=== PATIENT | female | born 1980 | race Caucasian/White ===

== ENCOUNTER 2017-07-06 13:01 | Observation (INO) ==
[2017-07-06] MEDS ORDERED: HYDROmorphone 2 MG/1 ML VIAL IV STA (13:13)
[2017-07-06] MEDS ORDERED: ONDANSETRON 4 MG/2 ML VIAL IV STA (13:13)
[2017-07-06 13:25] LABS: Basophils # 0.1 10*3/uL (0.0-0.2); Basophils % 0.8 % (0.0-0.8); Eosinophils # 0.3 10*3/uL (0.0-0.87); Eosinophils % 3.5 % (0.00-10.9); Hematocrit 33.4 VOL% (35.7-47.0); Hemoglobin 10.4 GM/DL (12.0-16.0); Immature Granulocytes % 0.6 %; Immature Granulocytes Absolute 0.05 #; Lymphocytes # 2.6 10*3/uL (1.4-4.0); Lymphocytes % 28.2 % (21.3-54.2); Mean Corpuscular HGB Conc 31.1 GM/DL (32-36); Mean Corpuscular Hemoglobin 23 PG (27-34); Mean Corpuscular Volume 73.2 FL (87-102); Monocytes # 0.5 10*3/uL (0.11-0.8); Monocytes % 5.8 % (1.7-12.7); Neutrophils # 5.6 10*3/uL (1.4-7.4); Neutrophils % 61.1 % (38.7-73.9); Platelet Count 384 T/CUMM (130-400); Red Blood Count 4.56 MC/CUMM (3.8-5.5); Red Cell Distribution Width 17.5 % (9.3-17.3); White Blood Count 9.1 T/CUMM (4-12)
[2017-07-06] MEDS ORDERED: ONDANSETRON 4 MG/2 ML VIAL ONE (13:26)
[2017-07-06] MEDS ORDERED: HYDROmorphone 2 MG/1 ML VIAL ONE (13:26)
[2017-07-06 13:47] LABS: Alanine Aminotransferase 27 U/L (13-56); Albumin 3.8 G/DL (3.4-5.0); Alkaline Phosphatase 101 U/L (45-117); Aspartate Amino Transferase 14 U/L (0-37); Bilirubin,Total < 0.39 MG/DL (0.2-1.0); Blood Urea Nitrogen 17 MG/DL (7-18); Calcium 9.2 MG/DL (8.5-10.1); Glucose 120 MG/DL (74-106); Osmolality,Calculated 279.5 MOS/KG (273-304); Sodium 139 MMOL/L (136-145); Total Protein 8.2 G/DL (6.4-8.3)
[2017-07-06 13:49] LABS: Lactic Acid 1.5 MMOL/L (0.4-2.0)
--- NOTE | 2017-07-06 14:55 | Ultrasound Report ---
Right upper quadrant ultrasound Indication: Abdominal Pain Findings: The liver is normal in size and echogenicity. The gallbladder is fluid-filled without evidence of stones or sludge. The gallbladder wall thickness is 3.2 mm . The common bile duct measures 3.7 mm. The visualized portion of the pancreas appear within normal limits The right kidney is normal in size and echogenicity and measures 10.7 cm . No free fluid or free air seen. Impression: No evidence of abnormality demonstrated. Ultrasound images stored and captured. PROCEDURE INTERPRETED AT [facility] DEPARTMENT OF RADIOLOGY Final Report Signed by: Dr. Tr Ferreira
[2017-07-06 15:20] LABS: Apearance,Urine Slightly Hazy (Clear); Bilirubin,Urine Negative (Negative); Blood, Urine Moderate mg/dL (Negative); Glucose,Urine (UA) Negative (Negative); Ketones,Urine 20 mg/dL (Negative); Mucus,Urine Occasional /LPF (Occasional); Nitrite,Urine Negative (Negative); Protein,Urine Negative; RBC,Urine 8 /HPF (0-4); Squamous Epithelial Cell,Urine Occasional /HPF (0-10); Urine Color Yellow (Yellow); Urine Specific Gravity 1.031 (1.001-1.035); Urine Urobilinogen < 2.0 EU/DL (0.2-1.0); WBC,Urine 1 /HPF (0-6)
--- NOTE | 2017-07-06 16:08 | CT Report ---
Exam: CT abdomen and pelvis without intravenous contrast Exam date: 07/06/2017 3:51 PM Clinical History: 36 years,Female, worsening right flank and abdominal pain, generalized Technique: Axial computed tomography images of the abdomen and pelvis without intravenous contrast. All CT scans at this facility use one or more dose reduction techniques. Automated exposure control, MA/KV adjustment per patient size (including targeted exam Square dose is matched to indication) or iterative reconstruction technique Comparison: August 11, 2014 Findings: Lower thorax: No acute pathology within the lung bases. Abdomen: Liver: Enlarged Gallbladder and bile ducts: Slightly distended with large stone at the gallbladder neck. Pancreas: Pancreas is normal. Spleen: Spleen is normal. Adrenals: No adrenal mass. Kidneys and ureters: Normal in size, echotexture and morphology. No hydronephrosis. No ureteral calculus. Stomach and bowel: No evidence of acute gastritis, colitis or enteritis. No bowel obstruction. Appendix: No primary or secondary signs to suggest appendicitis. Pelvis: Bladder: Unremarkable Reproductive: 7.0 cm mixed density mass abutting the posterior right uterus. Abdomen and pelvis: Intraperitoneal space: No pneumoperitoneum. No free intraperitoneal fluid Bones/joints: No acute osseous abnormality. Soft tissues: No mass Vasculature: No aortic aneurysm. Atheromatous calcifications noted along the aorta and branch vessels. Lymph nodes: No adenopathy Impression: 1. 1. Cholelithiasis with gallbladder distention. Correlate with dedicated ultrasound for possibility of underlying cholecystitis. 2. 7.0 cm pelvic mass abutting the posterior right uterus. Unclear if findings represent cystic ovarian mass and/or degenerating subserosal uterine fibroid. Correlate with dedicated pelvic ultrasound PROCEDURE INTERPRETED AT [facility] DEPARTMENT OF RADIOLOGY Final Report Signed by: Paty Alves MD
[2017-07-06] MEDS ORDERED: ONDANSETRON 4 MG/2 ML VIAL IV PRN (16:38)
[2017-07-06] MEDS ORDERED: ACETAMINOPHEN 325 MG TABLET PO PRN (16:38)
--- NOTE | 2017-07-06 16:38 | Emergency Department Note ---
Yeison Ricks Brittany, am scribing for, and in the presence of, Aj Kaye MD 13:16. Vargas Ricks Doug C, MD, personally performed the services described in this documentation, ascribed by Dolores Latham in my presence, and it is both accurate and complete [id number] . Arrival - Arrival Chief Complaint: Abdominal / Flank Pain Stated Complaint: r upper quadrant abd pain ED Nursing Triage Note: C/o RUQ pain radiating into back-onset "a couple months ago", worse this morning. Reports pain worse after meals. Mode of Arrival: Ambulatory Limitations: No Limitations Source: Patient, RN Notes Reviewed Time Seen by Provider: 07/06/17 13:13 - History of Present Illness HPI Narrative: Patient is 36-year-old white female states she has been having some right upper quadrant pain that has been occurring off and on for the last several months. Patient states it typically occurs sometimes after she eats typically 1-2 hours later and the pain radiates into her back and right shoulder area. Patient states she got home last night and ate some lasagna after work. 2 hours later she developed a severe pain which seems to be worse than her typical episodes. Patient denies any fever or chills associated with this. She has had nausea but has not vomited. She denies any blood in her stool or any melena. She denies any dyspepsia or dysphagia. Onset (ago): hour(s) (4) Consistency: constant Severity: severe Severity scale (1-10): 9 Quality: aching Date of Last Menstrual Period: at current Allergies/Adverse Reactions: Allergies Allergy/AdvReac Type Severity Reaction Status Date / Time No Known Allergies Allergy Verified 07/06/17 13:06 Home Medications: Home Medications Medication Instructions Recorded Confirmed Type No Known Home Medications [No 07/06/17 07/06/17 History Known Home Medications] Review of System - Review of System 12 point system: reviewed and no additional remarkable complaints except as stated - Review of System Constitutional: Present: chills. Absent: fever Eyes: Absent: vision change Head/Ears/Nose/Throat: Absent: nasal drainage, sore throat Respiratory: Absent: respiratory distress Cardiovascular: Absent: chest pain Gastrointestinal: Present: abdominal pain, nausea. Absent: vomiting, diarrhea, constipation, melena, hematochezia Genitourinary female: Absent: dysuria, frequency, urgency Musculoskeletal: Present: back pain. Absent: arm pain, leg pain, neck pain Skin: Absent: rash Neurological: Absent: headache Psychiatric: Absent: anxiety, depression Hematological/Lymphatic: Absent: easy bleeding, easy bruising Medical,Surgical,& Family Hx - Medical History Medical History: noncontributory - Surgical History Additional Surgical History: Hysteroscopy - Family History Family History: noncontributory - Social History Smoking Status: Never smoker Frequency of Alcohol Use: None Type of Drug Use: None Exam Vital Signs: Vital Signs Temperature 96.2 F L 07/06/17 13:10 Pulse Rate 59 L 07/06/17 15:30 Respiratory Rate 15 07/06/17 15:30 Blood Pressure 134/77 07/06/17 15:30 O2 Sat by Pulse Oximetry 99 07/06/17 15:30 - General General appearance: alert, in distress (appears uncomfortable secondary to pain , tearful) - Head Head exam: Present: atraumatic, normocephalic, normal inspection - Eye Eye exam: Present: PERRL, EOMI - ENT ENT exam: Present: normal exam, normal oropharynx - Neck Neck exam: Present: normal inspection, full ROM, trachea midline - Chest Chest inspection: Present: normal inspection, symmetric chest wall rise - Respiratory Respiratory exam: Present: normal lung sounds bilaterally. Absent: respiratory distress - Cardiovascular Cardiovascular exam: Present: regular rate, normal rhythm, normal heart sounds. Absent: murmur, rubs, gallop - Abdominal Exam Abdominal exam: Present: soft, tenderness (RUQ TTP), normal bowel sounds. Absent: distention - Extremities Exam Extremities exam: Present: normal inspection - Back Exam Back exam: Present: normal inspection - Neurological Exam Neurological exam: Present: alert, oriented X3, CN II-XII intact. Absent: motor sensory deficit - Psychiatric Psychiatric exam: Present: normal affect, normal mood - Skin Skin exam: Present: warm, dry Course Course Narrative: Patient clinical presentation, laboratory and radiographic findings were discussed with Dr. Lilly. Patient be admitted to services and he will plan on cholecystectomy in the morning. Results - Labs CBC & BMP: 07/06/17 13:17 07/06/17 13:17 Lab Results: I have reviewed the patients labs Labs: Laboratory Tests 07/06/17 13:17 WBC 9.1 RBC 4.56 Hgb 10.4 L Hct 33.4 L MCV 73.2 L MCH 23 L MCHC 31.1 L RDW 17.5 H Plt Count 384 Laboratory Tests 07/06/17 13:17 Sodium 139 Potassium 3.0 L Chloride 105 Carbon Dioxide 27 BUN 17 Creatinine 0.70 BUN/Creatinine Ratio 24.00 H Glucose 120 H Lactic Acid 1.5 Albumin 3.8 Globulin 4.4 H Albumin/Globulin Ratio 0.8 L Lipase 264.0 Laboratory Tests 07/06/17 07/06/17 14:54 14:54 Urine Color Yellow Urine Appearance Slightly hazy Urine pH 5.0 Ur Specific [place] 1.031 Urine Protein Negative Urine Glucose (UA) Negative Urine Ketones 20 Urine Blood Moderate Urine Nitrate Negative Urine Bilirubin Negative Urine Urobilinogen < 2.0 H Urine Leukocytes Negative Urine RBC 8 Urine WBC 1 Ur Squamous Epith Cells Occasional Urine Mucus Occasional Urine Test Negative - Diagnostic Findings Procedure: CT Abdomen and Pelvis: report reviewed by me ( 1. 1. Cholelithiasis with gallbladder distention. Correlate with dedicated ultrasound for possibility of underlying cholecystitis. 2. 7.0 cm pelvic mass abutting the posterior right uterus. Unclear if findings represent cystic ovarian mass and/or degenerating subserosal uterine fibroid. Correlate with dedicated pelvic ultrasound.), Ultrasound: report reviewed by me (Gallbladder US : No evidence of abnormality demonstrated.) Disposition Clinical Impression: Cholelithiasis Case discussed with: patient, patient's family Disposition: Still a Patient Condition: Stable Time of Disposition: 16:38
--- NOTE | 2017-07-06 17:21 | General Surg History&Physical ---
Assessment and Plan (1) Cholelithiasis Status: Acute Assessment and plan: Impression: Symptomatic cholelithiasis, probable chronic cholecystitis Plan: History and exam suggestive of gallbladder pathology. Ultrasound was negative but a gallstone was seen on CT scan near the neck of the gallbladder. Incidental finding was made of a cystic mass in the pelvis likely an ovarian cyst. The patient is asymptomatic from that though she does have some blood in her urine. She will follow-up with her owner/photographer regarding this after discharge. I discussed options with the patient and she would like to proceed with cholecystectomy. We discussed the procedure habits performed and anticipated recovery. The risk of the procedure including bleeding, infection, damage to surrounding structures including the biliary tree, need for further surgery were all discussed in detail and she would like to proceed with cholecystectomy in the morning. Current Visit: Yes History of Present Illness Chief complaint: Abdominal pain History of present illness: Ms. Dumont is a 36 year old female presents to the emergency room with right upper quadrant abdominal pain. It has been going on for at least 3 months. Initially it was associated with eating fried or fatty foods and since she has had pain after nearly anything she eats. She has nausea and vomiting with the intense pain but otherwise has none. She has no fever. She has not noticed any blood in her urine. She has no chest pain shortness of breath or any heart or lung problems. The pain is sharp located in the right upper quadrant and varies with symptom-free intervals. Home Medications Medication Instructions Recorded Confirmed Type No Known Home Medications [No 07/06/17 07/06/17 History Known Home Medications] Allergies Allergy/AdvReac Type Severity Reaction Status Date / Time No Known Allergies Allergy Verified 07/06/17 13:06 Medical,Surgical,& Family Hx - Medical History Medical History: noncontributory - Surgical History Surgical History: noncontributory - Family History Family History: noncontributory - Social History Smoking Status: Never smoker Frequency of Alcohol Use: None Type of Drug Use: None Exam - Constitutional Vitals: Period Temp Pulse Resp BP Sys/Rodriguez Pulse Ox Last 24 Hr 96.2 F-96.2 F 59-74 12-22 133-166/62-109 99-100 General appearance: no acute distress - Head Head exam: Present: normocephalic - ENT Mouth exam: Present: normal external inspection - Neck Neck exam: Present: normal inspection - Respiratory Respiratory exam: Present: clear to auscultation bilaterally - Cardiovascular Cardiovascular exam: Present: RRR - GI/Abdominal GI/Abdominal exam: Present: soft (Tender to palpation in the right upper quadrant. No Glover's. No other abdominal tenderness. Nondistended.) - Extremities Exam Extremities exam: Present: normal inspection - Back Exam Back exam: Present: normal inspection - Neurological Exam Neurological exam: Present: alert, oriented X3 Speech: Present: normal - Skin Skin exam: Present: normal color 12 point system: reviewed and no additional remarkable complaints except as stated Results - Labs CBC & BMP: 07/06/17 13:17 07/06/17 13:17 Lab Results: I have reviewed the past 24 hour labs
[2017-07-06] MEDS ORDERED: INFLUENZA VIRUS VACCINE 0.5 ML SYRINGE IM ONE (18:08)
[2017-07-06] MEDS: POTASSIUM CHLORIDE RIDER 10 MEQ in PREMIX 1 EACH IV SCH ×3 (18:41→22:48)
[2017-07-06] MEDS: DEXTROSE 5% NACL 0.45% 1,000 ML IV SCH (18:41)
[2017-07-06] MEDS ORDERED: POTASSIUM CHLORIDE RIDER 10 MEQ in PREMIX 1 EACH IV SCH (23:00)
[2017-07-07] MEDS: DEXTROSE 5% NACL 0.45% 1,000 ML IV SCH ×3 (02:59→22:18)
[2017-07-07] MEDS ORDERED: GLYCOPYRROLATE 0.4 MG/2 ML VIAL ONE (07:22)
[2017-07-07] MEDS ORDERED: LIDOCAINE 2% 5 ML VIAL ONE (07:22)
[2017-07-07] MEDS ORDERED: ONDANSETRON 4 MG/2 ML VIAL ONE ×2 (07:22→08:49)
[2017-07-07] MEDS ORDERED: PROPOFOL 200 MG/20 ML VIAL IV ONE (07:22)
[2017-07-07] MEDS ORDERED: ROCURONIUM 100 MG/10 ML VIAL IV ONE (07:22)
[2017-07-07] MEDS ORDERED: NEOSTIGMINE 10 MG/10 ML VIAL ONE (07:22)
[2017-07-07] MEDS: LACTATED RINGERS 1,000 ML IV SCH ×2 (07:25→12:26)
[2017-07-07] MEDS ORDERED: TISSUE ADHESIVE 1 EACH APPLICATOR TOP ONE (07:27)
[2017-07-07] MEDS ORDERED: LIDOCAINE 1%/EPI INJ 20 ML VIAL ONE (07:27)
[2017-07-07] MEDS ORDERED: HYDROmorphone 2 MG/1 ML VIAL ONE (08:49)
[2017-07-07] MEDS: HYDROmorphone 2 MG/1 ML VIAL IV PRN ×7 (08:50→22:19)
[2017-07-07] MEDS ORDERED: ONDANSETRON 4 MG/2 ML VIAL IV PRN (08:54)
--- NOTE | 2017-07-07 08:56 | Operative Note ---
Date of procedure: 07/07/17 Pre-op diagnosis: Symptomatic cholelithiasis Post-op diagnosis: same (Acute cholecystitis) Procedure: Procedure performed: Laparoscopic cholecystectomy with intraoperative cholangiogram Procedure in detail: After informed consent was obtained, patient was taken operating suite lies upon the operating table. After general anesthesia was induced abdomen was prepped and draped in usual sterile fashion. After procedural pause local anesthetic infiltrated in the skin and subcutaneous tissue just above the umbilicus. Incision carried down through skin and soft tissue. Fascia grasped with Thayer's and elevated. Fascial incision was made. Abdominal cavity was entered bluntly. Finger sweep revealed no adhesions. Reid trocar placed under direct visualization. Pneumoperitoneum achieved. Camera inserted and bowel mesentery inspected found to be free of any violation. Patient was placed in reverse Trendelenburg position rotated to the left. 2 5 mm trochars were placed in the right upper quadrant 11 mm subxiphoid trocar was placed all under visualization. Gallbladder identified. It was dilated and the wall appeared thickened and edematous. Gallbladder was grasped and retracted superiorly. Infundibulum the gallbladder retracted toward the right hip. There was a large stone at the junction of the gallbladder cystic duct. Dissection was carried out from a lateral to medial approach and the triangle of Myesha and the cystic duct and cystic artery were identified and dissected free from the surrounding tissue. A critical view of safety was obtained. Cystic duct and cystic artery were the only 2 structures entering the gallbladder. Clip was placed the junction of the cystic duct neck of the gallbladder and partial transection made on cystic duct and cholangiocatheter inserted and secured in place. Intraoperative glandular and performed. Cystic duct common bile duct intra-and extrahepatic ducts all filled with no filling defects identified. Contrast was seen entering the small bowel. The cholangiocatheter was removed and 2 clips placed on the cystic duct just distal to the partial transection the transection completed. Cystic artery was triple clipped and transected and gallbladder removed from gallbladder fossa using hook cautery and placed in Endo Catch sac and removed to the Reid trocar site. Pneumoperitoneum was reachieved in the right upper quadrant thoroughly irrigated and suctioned. The clips inspected found to be intact no leakage of bilious or sanguinous fluid. There is excellent hemostasis and the irrigant remained clear. All the irrigant was suctioned. Trochars were removed his abdomen desufflated. Fascia at the Reid trocar site closed using 0 Vicryl [id number] interrupted suture. Wounds were thoroughly irrigated and suctioned the deep dermal layer closed with 3-0 Vicryl. 4-0 Monocryl used to close skin. Sterile dressings applied. Patient was extubated and taken recovery room in stable condition. All lap and needle counts were correct at the end of the case. Anesthesia: GETA Surgeon / Physician: Stanley Anderson Estimated blood loss: other (Less than 10 cc) Specimens: other (Gallbladder) Condition: stable Disposition: PACU Results - Labs CBC & BMP: 07/06/17 13:17 07/06/17 13:17 Discharge Plan - Discharge Medications No Action No Known Home Medications [No Known Home Medications] - Follow Up or Referral - Forms/Instructions
--- NOTE | 2017-07-07 09:32 | Fluoroscopy Report ---
Intraoperative cholangiogram Indication: Cholecystectomy, retained common bile duct stones Findings: Fluoroscopic imaging was provided during intraoperative cholangiogram postcholecystectomy. No filling defects are identified in the biliary system and contrast flows into the small bowel without difficulty. Fluoroscopy time 11.1 seconds Impression: Intraoperative cholangiogram as described above. PROCEDURE INTERPRETED AT [facility] DEPARTMENT OF RADIOLOGY Final Report Signed by: Dr. Tr Ferreira
[2017-07-07] MEDS: PANTOPRAZOLE 40 MG TABLET PO SCH (10:08)
--- NOTE | 2017-07-07 13:46 | Anesthesia Post-Op ---
Anesthesia Post OP - Post Ansesthetic Evaluation Patient seen in post op: Yes Resp: within normal limits CV: within normal limits Mental: within normal limits Temp: within normal limits [id number]: within normal limits Nausea and Vomiting: within normal limits Pain: within normal limits
[2017-07-07] MEDS ORDERED: fentaNYL 100 MCG/2 ML VIAL ONE (13:51)
[2017-07-07] MEDS ORDERED: SEVOFLURANE 1 UNIT/15 MINUTE INH ONE (13:51)
[2017-07-07] MEDS ORDERED: MIDAZOLAM 2 MG/2 ML VIAL ONE (13:51)
[2017-07-07] MEDS ORDERED: ACETAMINOPHEN 1,000 MG/100 ML VIAL IV ONE (13:51)
[2017-07-08 08:18] VITALS: BP 101/61
[2017-07-08] MEDS: PANTOPRAZOLE 40 MG TABLET PO SCH (09:34)
[2017-07-08] MEDS: HYDROmorphone 2 MG/1 ML VIAL IV PRN (10:17)
--- NOTE | 2017-07-08 10:52 | Discharge Summary ---
Hospital Course - Hospital Course Hospital Course: Status post laparoscopic cholecystectomy for acute cholecystitis. This morning the patient is doing well. She is up and ambulating in regular close. She has been tolerating a diet and her pain is well controlled. She has been afebrile and her vital signs are stable. Her abdomen is soft appropriately tender and nondistended and incisions look good. She would like to go home. Discharge instructions were given. She will follow-up with me in 2 weeks. She is instructed to call sooner for any fever, nausea vomiting, worsening abdominal pain, redness or drainage from the incisions, or any other concern. Diagnosis - Discharge Diagnosis (1) Cholelithiasis Status: Acute Specialty Discharge - Follow Up or Referrals Follow up with: Stanley Anderson MD [Physician] - 2 Weeks Discharge Plan - Discharge Medications No Action No Known Home Medications [No Known Home Medications] - Follow Up or Referral Follow Up: Stanley Anderson MD [Physician] - 2 Weeks - Forms/Instructions Instructions: Laparoscopic Cholecystectomy (DC) Exam - Constitutional Vitals: Period Temp Pulse Resp BP Sys/Rodriguez Pulse Ox Last 24 Hr 97.1 F-98.8 F 79-109 18-20 99-128/50-76 93-99 DS: Provider Date of admission: 07/06/17 16:38 Primary care physician: . No PCP Attending physician on admission: Stanley Anderson MD Consults: 07/06/17 22:51 Consult to Anesthesiology [CONS] Routine Consulting Provider: Reason for Anesthesiology: Pre-op Clearance Discharging clinician: Stanley Anderson MD
--- NOTE | 2017-07-10 09:24 | Pathology Report from [facility] ---
[facility] [place] : [id number] PATIENT NAME : Karyn Guerra ORDERING DR : Stanley Anderson MD CLINICAL HX: Cholecysitits, cholelithiasis POST-OP DX: Same SPECIMEN INFO: Gallbladder GROSS DESCRIPTION: Received in formalin labeled KARYN GUERRA is an intact pear -shaped gallbladder measuring 11.3 x 3.6 cm. The serosa is smooth moran pink. The gallbladder wall has a thickness of up to 0.3 cm. The mucosa is pink nowak with diffuse yellow trabeculated speckling present. In the fundus is a 2.6 x 1.9 cm crystalline yellow brown stone. Publicity Writer sections are submitted in one cassette. DIAGNOSIS FOR KARYN GUERRA: GALLBLADDER: Chronic cholecystitis. Cholelithiasis. No evidence of malignancy. COLLECTED DATE: 07/08/2017 [facility] [place] DATE: 07/09/2017 ELECTRONICALLY SIGNED BY: Zuhair Diamond III, M.D. 07/09/2017 - 10:57:59 MTDD
== END 2017-07-08 11:05 | disposition home or self-care (01) ==
LOC: N.ED 13:01 → N.EDINP 13:01 → N.2E 17:50
PROVIDERS: ADMIT Surgery; ATTEND Surgery
PROC: LAPCHOL (2017-07-07 07:22)